=== PATIENT | male | born 2000 | race American Indian/Alaskan Native ===

== ENCOUNTER 2021-08-26 17:43 | Emergency (ER) | payer OTHER | END 2021-08-26 18:00 | disposition home or self-care (01) | LOC: MW.ED 17:43 | DX: H66.002 Acute suppurative otitis media without spontaneous rupture of ear drum, left ear (principal) | CPT/HCPCS: 99282 ==

== ENCOUNTER 2021-09-23 07:41 | Emergency (ER) | payer OTHER ==
[2021-09-23 08:27] LABS: BLOOD UREA NITROGEN,BUN 8 mg/dL (7.0-18.0); CHLORIDE,CL 103 mmol/L (98-107); GLUCOSE RANDOM 100 mg/dL (74-106); POTASSIUM,K 3.3 mmol/L (3.5-5.1); SODIUM,NA 140 mmol/L (136-148)
[2021-09-23 08:37] LABS: CARBON DIOXIDE,CO2 21.7 mmol/L (21.0-32.0)
== END 2021-09-23 09:26 | disposition home or self-care (01) ==
LOC: MW.ED 07:41
DX: F18.10 Inhalant abuse, uncomplicated (principal)
CPT/HCPCS: 36415; 80053; 80305-QW; 80307; 81001; 85025; 93005; 93010; 99283; 99283-25

== ENCOUNTER 2021-10-27 13:29 | Emergency (ER) | payer OTHER ==
[2021-10-27] MEDS ORDERED: hydrOXYzine Pamoate 25 MG Cap PO ONE (15:37)
== END 2021-10-27 15:52 | disposition home or self-care (01) ==
LOC: MW.ED 13:29
DX: F41.9 Anxiety disorder, unspecified (principal); F32.A Depression, unspecified
CPT/HCPCS: 99283; A9270